=== PATIENT | male | born 2000 | race African-American/Black ===

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

== ENCOUNTER 2022-12-30 19:01 | Emergency (ER) | payer OTHER ==
[2022-12-30 20:03] LABS: SARS-CoV-2 NAA Rapid Test Not Detected (NotDetected)
== END 2022-12-30 20:57 | disposition home or self-care (01) ==
LOC: ERS 19:01
DX: B34.9 Viral infection, unspecified (principal); Z20.822 Contact with and (suspected) exposure to COVID-19
CPT/HCPCS: 99283